=== PATIENT | male | born 1980 | race Caucasian/White ===

== ENCOUNTER 2019-06-10 08:47 | Emergency (ER) | payer SELFPAY ==
--- NOTE | 2019-06-10 09:08 | EDM.PDOC ---
ED HPI GENERAL MEDICAL PROBLEM - General Chief Complaint: Upper Extremity Injury/Pain Stated Complaint: LEFT SHOULDER PAIN Time Seen by Provider: 06/10/19 08:53 - History of Present Illness INITIAL COMMENTS - FREE TEXT/NARRATIVE: HISTORY AND PHYSICAL: History of present illness: Patient 39-year-old male presents with concern of bilateral shoulder pain and right hand pain this been a chronic intermittent problem he presents here today for referral and has no local doctor he's recently arrived to the area. No fever chills nausea vomiting or other complaints she does not recall any specific trauma Review of systems: As per history of present illness and below otherwise all systems reviewed and negative. Past medical history: As per history of present illness and as reviewed below otherwise noncontributory. Surgical history: As per history of present illness and as reviewed below otherwise noncontributory. Social history: No reported history of drug or alcohol abuse. Family history: As per history of present illness and as reviewed below otherwise noncontributory. Physical exam: HEENT: Atraumatic, normocephalic, pupils reactive, negative for conjunctival pallor or scleral icterus, mucous membranes moist, throat clear, neck supple, nontender, trachea midline. Lungs: Clear to auscultation, breath sounds equal bilaterally, chest nontender. Heart: S1S2, regular, negative for clicks, rubs, or JVD. Abdomen: Soft, nondistended, nontender. Negative for masses or hepatosplenomegaly. Negative for costovertebral tenderness. Pelvis: Stable nontender. Genitourinary: Deferred. Rectal: Deferred. Extremities: Atraumatic, . No bony tenderness no crepitation no erythema CMS and neurovascular exam unremarkable throughout Neuro: Awake, alert, oriented. Cranial nerves II through XII unremarkable. Cerebellum unremarkable. Motor and sensory unremarkable throughout. Exam nonfocal. Diagnostics: X-ray bilateral shoulder right hand urine drug screen Therapeutics: None Impression: #1 bilateral shoulder pain #2 right hand pain #3 medical screening exam Definitive disposition and diagnosis as appropriate pending reevaluation and review of above. Review of Systems - Review of Systems Review Of Systems: ROS reveals no pertinent complaints other than HPI. ED EXAM, GENERAL - Physical Exam Exam: See Below (dictation) Course - Orders/Labs/Meds Orders: Active Orders 24 hr Category Date Time Status Hand Comp Min 3V Rt [CR] Stat Exams 06/10/19 09:05 Ordered Shoulder Comp Lt [CR] Stat Exams 06/10/19 08:57 Ordered Shoulder Comp Rt [CR] Stat Exams 06/10/19 08:57 Ordered DRUG SCREEN, URINE [URCHEM] Stat Lab 06/10/19 09:05 Ordered Departure - Departure Time of Disposition: Disposition: Home, Self-Care 01 Condition: Good Clinical Impression: Shoulder pain, Hand pain - Discharge Information Referrals: PCP,None [Primary Care Provider] - Additional Instructions: The following information is given to patients seen in the emergency department who are being discharged to home. This information is to outline your options for follow-up care. We provide all patients seen in our emergency department with a follow-up referral. The need for follow-up, as well as the timing and circumstances, are variable depending upon the specifics of your emergency department visit. If you don't have a primary care physician on staff, we will provide you with a referral. We always advise you to contact your personal physician following an emergency department visit to inform them of the circumstance of the visit and for follow-up with them and/or the need for any referrals to a consulting specialist. The emergency department will also refer you to a specialist when appropriate. This referral assures that you have the opportunity for followup care with a specialist. All of these measure are taken in an effort to provide you with optimal care, which includes your followup. Under all circumstances we always encourage you to contact your private physician who remains a resource for coordinating your care. When calling for followup care, please make the office aware that this follow-up is from your recent emergency room visit. If for any reason you are refused follow-up, please contact the [facility] emergency department at and asked to speak to the emergency department charge nurse. [facility] [address] [place] [id number] [facility] - [facility] Professional Building [address] [place] [address], [address] [place] [address] Motrin/Tylenol as directed follow-up orthopedic clinic and primary care as discussed call to schedule appointment return as needed as discussed - My Orders Last 24 Hours: My Active Orders 06/10/19 08:57 Shoulder Comp Lt [CR] Stat Shoulder Comp Rt [CR] Stat 06/10/19 09:05 Hand Comp Min 3V Rt [CR] Stat DRUG SCREEN, URINE [URCHEM] Stat - Assessment/Plan Last 24 Hours: My Active Orders 06/10/19 08:57 Shoulder Comp Lt [CR] Stat Shoulder Comp Rt [CR] Stat 06/10/19 09:05 Hand Comp Min 3V Rt [CR] Stat DRUG SCREEN, URINE [URCHEM] Stat
--- NOTE | 2019-06-10 09:44 | CR ---
INDICATION: Left shoulder pain. TECHNIQUE: Three views of both shoulders, 6 images. COMPARISON: No previous comparison. FINDINGS: No joint space narrowing, erosive change, abnormal soft tissue calcification or other abnormality. IMPRESSION: Negative shoulders. Dictated by Patrice Santiago MD @ Jun 10 2019 9:41AM Signed by Dr. Patrice Santiago @ Jun 10 2019 9:43AM
--- NOTE | 2019-06-10 09:47 | CR ---
INDICATION: Knuckle pain. TECHNIQUE: Three views of the right hand. COMPARISON: None. FINDINGS: No soft tissue swelling, fracture, joint space narrowing, erosive change or chondrocalcinosis. Ununited ulnar styloid ossicle versus old ununited ulnar styloid fracture. IMPRESSION: Negative right hand. Dictated by Patrice Santiago MD @ Jun 10 2019 9:43AM Signed by Dr. Patrice Santiago @ Jun 10 2019 9:45AM
== END 2019-06-10 10:19 | disposition home or self-care (01) ==
LOC: MW.ED 08:47
DX: M25.512 Pain in left shoulder (principal); M25.511 Pain in right shoulder; M79.641 Pain in right hand
CPT/HCPCS: 730302650; 73030-50; 73130-26-RT; 73130-RT; 80305-QW; 99283-25